=== PATIENT | female | born 1955 | race Caucasian/White ===

== ENCOUNTER 2018-04-09 12:28 | Emergency (ER) | payer OTHER ==
[2018-04-09] MEDS ORDERED: Sodium Chloride 0.9% 10 ML Syringe FLUSH PRN (13:20)
[2018-04-09] MEDS ORDERED: Furosemide 40 MG/4 ML VIAL IVPUSH ONE (13:21)
--- NOTE | 2018-04-09 13:26 | EDM.PDOC ---
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 Is up about 10 pounds. This morning she was short of breath at rest. No fevers no chest pain - Related Data Allergies Allergy/AdvReac Type Severity Reaction Status Date / Time carboplatin Allergy Hives Verified 04/09/18 12:50 Home Meds: Home Meds Carvedilol 1.5 tab PO BID 04/09/18 [History] Furosemide [Lasix] 2 tab PO ASDIRECTED 04/09/18 [History] Insulin Glargine,Hum.Rec.Anlog [Lantus Solostar] 25 unit SUBCUT BEDTIME [History] Levothyroxine 1 tab PO DAILY 04/09/18 [History] Losartan [Cozaar] 1 tab PO DAILY 04/09/18 [History] Magnesium Oxide 1 cap PO BID 04/09/18 [History] Omeprazole 1 cap PO BID 04/09/18 [History] Prochlorperazine Maleate [Compazine] 10 mg PO ASDIRECTED 04/09/18 [History] Simvastatin [Zocor] 2 tab PO BEDTIME 04/09/18 [History] Past Medical History Cardiovascular History: Reports: Heart Failure Genitourinary History: Reports: Chronic Renal Insuffiency ANESTHESIOLOGY CRNA History: Reports: Endocrine/Metabolic History: Reports: Diabetes, Type II, Obesity/BMI 30+ Hematologic History: Reports: Anemia Immunologic History: Reports: Other (See Below) Other Immunologic History: d/t chemo Oncologic (Cancer) History: Reports: Breast, Metastatic, Other (See Below) Other Oncologic History: fallopian tube - Past Surgical History HEENT Surgical History: Reports: Tonsillectomy Female Surgical History: Reports: Hysterectomy, Oophorectomy Social & Family History - Tobacco Use Smoking Status *Q: Never Smoker - Recreational Drug Use Recreational Drug Use: No ED ROS GENERAL - Review of Systems Review Of Systems: See Below Constitutional: Denies: Fever, Chills HEENT: Reports: No Symptoms Respiratory: Reports: Shortness of Breath, Cough. Denies: Sputum Cardiovascular: Reports: Dyspnea on Exertion GI/Abdominal: Reports: No Symptoms : Reports: No Symptoms Musculoskeletal: Reports: No Symptoms Skin: Reports: No Symptoms Neurological: Reports: No Symptoms (Mandibular room all the) ED EXAM, GENERAL - Physical Exam Exam: See Below Free Text/Narrative:: General: Female visibly dyspneic but able speak in full sentences, alert and oriented x3 HEENT: head is atraumatic normocephalic, eyes pupils equal round reactive to light, sclera clear conjunctiva pale. Ears tympanic membranes clear and caba landmarks and light reflex are present bilaterally canals are clear. Nose no septal deviation, nares are clear, no blood present. Mouth mucosa is moist and pink no erythema or exudate noted in soft palate, tongue is midline uvula is midline, dentition is intact. Neck: Supple no thyromegaly no tracheal deviation. JVD is not appreciated Nodes: Cervical nodes subclavicular nodes nontender no palpable lymphadenopathy noted. Lungs: Crackles noted mid to lower lung kaufman bilaterally CV: Regular rate and rhythm S1 and S2 appreciated no murmurs rubs or gallops noted. Abdomen: Soft, nontender, no palpable masses or organomegaly appreciated, no distention no guarding bowel sounds are present, . Neuro: Cranial nerves II through XII grossly intact Skin: Warm and dry, intact Extremities: +1 pitting edema bilaterally, Course - Vital Signs Last Recorded V/S: Last Vital Signs Temp 96.7 F 04/09/18 12:44 Pulse 82 04/09/18 14:09 Resp 22 H 04/09/18 14:09 BP 149/75 H 04/09/18 14:09 Pulse Ox 91 L 04/09/18 14:09 - Orders/Labs/Meds Orders: Active Orders 24 hr Category Date Time Status Cardiac Monitoring [RC] .As Directed Care 04/09/18 13:15 Active EKG Documentation Completion [RC] ASDIRECTED Care 04/09/18 13:21 Active Peripheral IV Care [RC] . DIRECTED Care 05/13/18 13:21 Active Chest 2V [CR] Stat Exams 04/09/18 13:21 Taken UA W/MICROSCOPIC [URIN] Stat Lab 04/09/18 14:28 Ordered Sodium Chloride 0.9% [Saline Flush] Med 04/09/18 13:20 Active 10 ml FLUSH ASDIRECTED PRN Peripheral IV Insertion Adult [OM.PC] Stat Oth 04/09/18 13:20 Ordered EKG 12 Lead [EK] Stat Ther 04/09/18 13:21 Ordered Medication Orders Sodium Chloride (Saline Flush) 10 ml FLUSH ASDIRECTED PRN PRN Reason: Keep Vein Open Last Admin: 04/09/18 14:01 Dose: 10 ml Labs: Laboratory Tests 04/09/18 04/09/18 04/09/18 Range/Units 13:55 13:55 14:28 WBC 5.5 (4.5-11.0) K/uL RBC 2.68 L (3.30-5.50) M/uL Hgb 8.1 L (12.0-15.0) g/dL Hct 25.2 L (36.0-48.0) % MCV 94 (80-98) fL MCH 30 (27-31) pg MCHC 32 (32-36) % Plt Count 114 L (150-400) K/uL Neut % (Auto) 69 H (36-66) % Lymph % (Auto) 18 L (24-44) % [place] % (Auto) 10 H (2-6) % Eos % (Auto) 3 (2-4) % Baso % (Auto) 0 (0-1) % Sodium 139 L (140-148) mmol/L Potassium 6.0 H (3.6-5.2) mmol/L Chloride 107 (100-108) mmol/L Carbon Dioxide 23 (21-32) mmol/L Anion Gap 15.0 H (5.0-14.0) mmol/L BUN 55 H (7-18) mg/dL Creatinine 2.1 H (0.6-1.0) mg/dL Est Cr Clr Drug Dosing 24.35 mL/min Estimated GFR (MDRD) 24 L (>60) Glucose 201 H (74-106) mg/dL Calcium 8.4 L (8.5-10.1) mg/dL Total Bilirubin 0.6 (0.2-1.0) mg/dL AST 25 (15-37) U/L ALT 33 (12-78) U/L Alkaline Phosphatase 42 L (46-116) U/L Troponin I < 0.017 (0.000-0.056) ng/mL NT-Pro-B Natriuret Pep 7593 H (5-125) pg/mL Total Protein 6.1 L (6.4-8.2) g/dL Albumin 3.5 (3.4-5.0) g/dL Globulin 2.6 (2.3-3.5) g/dL Albumin/Globulin Ratio 1.3 (1.2-2.2) Urine Color Yellow Urine Appearance Clear Urine pH 7.0 (4.5-8.0) Ur Specific [place]oe[place] 1.010 (1.008-1.030) Urine Protein 30 H (NEGATIVE) mg/dL Urine Glucose (UA) Normal (NEGATIVE) mg/dL Urine Ketones Negative (NEGATIVE) mg/dL Urine Occult Blood Negative (NEGATIVE) Urine Nitrite Negative (NEGATIVE) Urine Bilirubin Negative (NEGATIVE) Urine Urobilinogen Normal (NORMAL) mg/dL Ur Leukocyte Esterase Negative (NEGATIVE) Urine RBC 0-5 (0-5) Urine WBC 0-5 (0-5) Ur Epithelial Cells Few Amorphous Sediment Few Urine Bacteria Few Urine Mucus Not seen Meds: Medications Generic Name Dose Route Start Last Admin Trade Name Freq PRN Reason Stop Dose Admin Sodium Chloride 10 ml 04/09/18 13:20 04/09/18 14:01 Saline Flush FLUSH 10 ml ASDIRECTED PRN Administration Keep Vein Open Discontinued Medications Generic Name Dose Route Start Last Admin Trade Name Freq PRN Reason Stop Dose Admin Furosemide 80 mg 04/09/18 13:21 04/09/18 14:01 Lasix IVPUSH 04/09/18 13:22 80 mg ONETIME ONE Administration Departure - Departure Time of Disposition: 14:56 Disposition: Home, Self-Care 01 Condition: Fair Clinical Impression: Congestive heart failure Qualifiers: Heart failure type: unspecified Heart failure chronicity: acute on chronic Qualified Code(s): I50.9 - Heart failure, unspecified Referrals: Robinson Perez II, MD [Primary Care Provider] - Forms: ED Department Discharge Additional Instructions: Start your Lasix 40 mg once a day tomorrow, please follow-up with your primary care provider on Tuesday of this week with blood work, call return to the emergency department worsening of symptoms - My Orders Last 24 Hours: My Active Orders 04/09/18 13:15 Cardiac Monitoring [RC] .As Directed 04/09/18 13:20 Sodium Chloride 0.9% [Saline Flush] 10 ml FLUSH ASDIRECTED PRN Peripheral IV Insertion Adult [OM.PC] Stat 04/09/18 13:21 EKG Documentation Completion [RC] ASDIRECTED Peripheral IV Care [RC] . DIRECTED Chest 2V [CR] Stat EKG 12 Lead [EK] Stat 04/09/18 14:28 UA W/MICROSCOPIC [URIN] Stat - Assessment/Plan Last 24 Hours: My Active Orders 04/09/18 13:15 Cardiac Monitoring [RC] .As Directed 04/09/18 13:20 Sodium Chloride 0.9% [Saline Flush] 10 ml FLUSH ASDIRECTED PRN Peripheral IV Insertion Adult [OM.PC] Stat 04/09/18 13:21 EKG Documentation Completion [RC] ASDIRECTED Peripheral IV Care [RC] . DIRECTED Chest 2V [CR] Stat EKG 12 Lead [EK] Stat 04/09/18 14:28 UA W/MICROSCOPIC [URIN] Stat Plan: Assessment Acuity = acute on chronic Site and laterality = exacerbation of congestive heart failure complicated patient with known history of metastatic breast and fallopian tube cancer on palliative chemotherapy with a history of chronic renal failure Etiology = related to fluid overload and insufficient diuretic medication Manifestations = dyspnea Location of injury = Home Lab values = hemoglobin low at 8.1 consistent with normochromic anemia potassium elevated at 6.0 consistent with hyperkalemia creatinine elevated at 2.1 consistent with chronic renal failure stage G for troponin was negative BNP elevated 7593 consistent with fluid overload type pattern, chest x-ray shows congestive heart failure type pattern official read radiology is pending. EKG demonstrates a sinus rhythm there is no ST changes or depressions no T wave elevations Plan She had good improvement combination nitroglycerin and Lasix plan is to start Lasix 40 mg once a day she will start tomorrow she will follow-up with her primary care upon return home on Tuesday This note was dictated using [employer] voice recognition software please call with any questions on syntax or grammar.
--- NOTE | 2018-04-10 09:51 | CR ---
Two-view chest Comparison: None. Findings: There is an [id number] catheter on the left with the tip in good position. There are pat lashae infiltrates in the mid and lower lung kaufman bilaterally. There are likely small effusions as wel l. There is borderline cardiac enlargement with vascular engorgement. Impression: 1. Findings most consistent with CHF with interstitial edema.
== END 2018-04-09 15:20 | disposition home or self-care (01) ==
LOC: JP.ED 12:28
DX: I50.9 Heart failure, unspecified (principal); E11.22 Type 2 diabetes mellitus with diabetic chronic kidney disease; N18.9 Chronic kidney disease, unspecified; Z85.44 Personal history of malignant neoplasm of other female genital organs; Z85.3 Personal history of malignant neoplasm of breast; Z88.8 Allergy status to other drugs, medicaments and biological substances
CPT/HCPCS: 36415; 71046; 80053; 81001; 83880; 84484; 85025; 93005; 96374; 99285; C1751; J1642; J1940; J7050